=== PATIENT | female | born 1950 | race Caucasian/White ===

== ENCOUNTER 2018-09-08 14:51 | Outpatient (CLI) | payer MEDICARE, OTHER ==
--- NOTE | 2018-09-08 17:24 | DEXA Report ---
Reason: POST MENOPAUSAL Procedure Date: 09/08/2018 Accession Number: [id number] / [id number] Procedure: DEX - Dexa Spine and/or Hip CPT Code: FULL RESULT: EXAM: Dexa Spine and/or Hip DATE: 09/08/2018 3:48 PM CLINICAL HISTORY: POST MENOPAUSAL TECHNIQUE: Dual energy x-ray absorptiometry (DXA) was performed on a [employer] System. Regions measured are the AP Spine, femoral neck, and if needed forearm. COMPARISON: None. In accordance with the International Society for Clinical Densitometry (ISCD) guidelines, data from previous exams may be reanalyzed using current recommendations and techniques. This is done to allow a more accurate basis for comparison with the current study. FINDINGS: The data for the lumbar spine is as follows: BMD (g/cm/cm) T-SCORE Z-SCORE REGION L1 1.412 2.4 3.9 L2 1.423 1.9 3.5 L3 1.432 1.9 3.5 L4 1.446 2.1 3.7 TOTAL 1.430 2.1 3.7 NOTE: All evaluable vertebrae are used for classification The data for the hip is as follows: BMD (g/cm/cm) T-SCORE Z-SCORE REGION Neck 0.970 -0.5 1.2 TOTAL 0.950 -0.5 1.0 NOTE: The femoral neck or total proximal femur, whichever is lowest, is used for classification. IMPRESSION: THE WHO CLASSIFICATION BASED ON THE INTERNATIONAL REFERENCE STANDARD IS NORMAL. THE FRACTURE RISK IS NOT INCREASED. RECOMMENDATION: Patients with diagnosis of osteoporosis or osteopenia should have regular bone mineral density assessment. For those eligible for Medicare, routine testing is allowed once every 2 years. Testing frequency can be increased for patients who have rapidly progressing disease or for those who are receiving medical therapy to restore bone mass. COMMENT: World Health Organization (WHO) definitions for osteoporosis and osteopenia: NORMAL BMD: T-score at -1.0 or higher, fracture risk is low OSTEOPENIA BMD: T-score between -1.0 and -2.5, fracture risk is increased. OSTEOPOROSIS BMD: T-score at -2.5 or lower, fracture risk is high. National Osteoporosis Foundation recommends: 1. Obtain adequate dietary calcium (at least 1200 mg per day) and vitamin D (400-800 international units per day). 2. Participate, as appropriate, in regular weightbearing and muscle-strengthening exercise. 3. Avoid tobacco use and reduce alcohol and caffeine intake. 4. For more detailed information see the website at www.NOF.org.
== END 2018-09-08 14:52 | disposition home or self-care (01) ==
LOC: DI 14:51
PROVIDERS: ATTEND Physician Assistant
DX: Z13.820 Encounter for screening for osteoporosis (principal); Z78.0 Asymptomatic menopausal state
CPT/HCPCS: 77080

== ENCOUNTER 2021-10-03 11:05 | Outpatient (CLI) | payer MEDICARE, OTHER ==
--- NOTE | 2021-10-03 13:13 | XRAY Report ---
PROCEDURE: Hand 3 View RT INDICATIONS: PAIN AT BASE OF R THUMB TECHNIQUE: 3 views of the hand(s) acquired. COMPARISON: None. FINDINGS: Bones: No fractures or dislocations. No suspicious bony lesions. Moderate osteoarthritis involving the first carpal metacarpal joint and multiple interphalangeal joints. Soft tissues: No suspicious soft tissue calcifications. IMPRESSION: Moderate osteoarthritis. Reviewed by: Mohit Chou MD on 10/03/2021 1:12 PM PST Approved by: Mohit Chou MD on 10/03/2021 1:12 PM PST Station ID: [id number]
== END 2021-10-03 11:06 | disposition home or self-care (01) ==
LOC: DI 11:05
PROVIDERS: ATTEND Physician Assistant
DX: M79.644 Pain in right finger(s) (principal); M19.041 Primary osteoarthritis, right hand

== ENCOUNTER 2024-07-21 12:35 | Emergency (ER) | payer MEDICARE, OTHER ==
[2024-07-21 12:50] VITALS: O2SAT 100
--- NOTE | 2024-07-21 13:16 | XRAY Report ---
PROCEDURE: Chest 1V INDICATIONS: Chest pain TECHNIQUE: One view of the chest was acquired. COMPARISON: 03/19/2014. FINDINGS: Surgical changes and devices: Calcified left breast implant. Lungs and pleura: No pleural effusions or pneumothorax. Lungs are clear. Mediastinum: Mediastinal contours appear normal. Heart size is normal. Bones and chest wall: No suspicious bony lesions. Overlying soft tissues appear unremarkable. IMPRESSION: No acute cardiopulmonary process. Reviewed by: Sheldon Stewart MD on 07/21/2024 1:15 PM PDT Approved by: Sheldon Stewart MD on 07/21/2024 1:15 PM PDT Station ID: [id number]
[2024-07-21 13:37] LABS: BASOPHILS % (AUTO) 0.5 %; EOSINOPHILS % (AUTO) 0.2 %; HCT - HEMATOCRIT 40.6 % (37.0-47.0); HGB - HEMOGLOBIN 13.1 g/dL (12.0-16.0); LYMPHOCYTES # (AUTO) 1.7 10^3/uL (1.5-3.5); LYMPHOCYTES % (AUTO) 20.4 %; MEAN CORPUSCULAR HEMOGLOBIN 32.2 pg (27.0-31.0); MEAN CORPUSCULAR HGB CONC 32.3 g/dL (32.0-36.0); MEAN CORPUSCULAR VOLUME 99.8 fL (81.0-99.0); MEAN PLATELET VOLUME 9.9 fL (7.9-10.8); MONOCYTES # (AUTO) 0.5 10^3/uL (0.0-1.0); MONOCYTES % (AUTO) 5.8 %; NEUTROPHILS # (AUTO) 5.9 10^3/uL (1.5-6.6); NEUTROPHILS % (AUTO) 72.9 %; PLT - PLATELET COUNT 230 10^3/uL (130-450); RED BLOOD COUNT 4.07 10^6/uL (4.20-5.40); RED CELL DISTRIBUTION WIDTH 12.5 % (12.0-15.0); WHITE BLOOD COUNT 8.1 x10^3/uL (4.8-10.8)
[2024-07-21 13:58] LABS: ALBUMIN 4.6 g/dL (3.2-5.5); ALBUMIN/GLOBULIN RATIO 1.8 (1.0-2.2); BILIRUBIN,TOTAL 0.5 mg/dL (0.2-1.0); CALCIUM 10.4 mg/dL (8.5-10.3); CREATININE 0.9 mg/dL (0.6-1.3); POTASSIUM 4.1 mmol/L (3.5-4.5); TOTAL PROTEIN 7.1 g/dL (6.4-8.9)
[2024-07-21 14:02] LABS: TROPONIN I HIGH SENSITIVITY 6.3 ng/L (2.3-14.8)
--- NOTE | 2024-07-21 15:00 | ED Physician Documentation ---
PD HPI CHEST PAIN - Stated complaint Stated Complaint: CHEST PX - Chief complaint Chief Complaint: Cardiac - History obtained from History obtained from: Patient - Additional information Additional information: very healthy 74yo w no hx cardiac Yesterday while driving about 10am had severe sharp L cp lasting 3-4 sec. Then felt out of it for 5-10min. no sx today no soa, no pedal edema or calf pain no back radiation PD PAST MEDICAL HISTORY - Past Medical History Past Medical History: Yes Cardiovascular: High cholesterol - Past Surgical History Past Surgical History: Yes General: Cholecystectomy, Appendectomy /MANAGER PROGRESSIVE CARE: Hysterectomy, Breast implants - Present Medications Home Medications: Ambulatory Orders Medication Instructions Recorded Confirmed Estrogen,Con/M-Progest Acet 11/18/13 08/28/15 [Prempro 0.3 mg-1.5 mg Tablet] - Allergies Allergies/Adverse Reactions: Allergies Allergy/AdvReac Type Severity Reaction Status Date / Time No Known Drug Allergies Allergy Verified 07/21/24 12:40 - Social History Does the pt smoke?: No Smoking Status: Never smoker Does the pt drink ETOH?: No Does the pt have substance abuse?: No - Immunizations Immunizations are current?: Yes - POLST Patient has POLST: No PD ED PE NORMAL - Vitals Vital signs reviewed: Yes - General General: Alert and oriented X 3, No acute distress - Cardiac Cardiac: RRR, No murmur - Respiratory Respiratory: No respiratory distress, Clear bilaterally - Abdomen Abdomen: Non tender - Extremities Extremities: No edema, No calf tenderness / cord - Neuro Neuro: Alert and oriented X 3, Normal speech - Psych Psych: Normal mood, Normal affect Results - Vitals Vitals: Vital Signs - 24 hr 07/21/24 12:40 Temperature 36.5 C Heart Rate 72 Respiratory 16 Rate Blood Pressure 140/60 H O2 Saturation 100 - EKG (time done) 1244 EKG releavant findings:: EKG personally interpreted by author of this note. Relevant findings are: Rate: Rate (enter#) (71) Rhythm: NSR [place]: Normal Intervals: Normal MT QRS: Low voltage Ischemia: Normal ST segments Computer interpretation: Agree with computer - Labs Labs: Laboratory Tests 07/21/24 07/21/24 13:25 13:25 WBC 8.1 RBC 4.07 L Hgb 13.1 Hct 40.6 MCV 99.8 H MCH 32.2 H MCHC 32.3 RDW 12.5 Plt Count 230 MPV 9.9 Neut # (Auto) 5.9 Lymph # (Auto) 1.7 [place] # (Auto) 0.5 Eos # (Auto) 0.0 Baso # (Auto) 0.0 Absolute Nucleated RBC 0.00 Nucleated RBC % 0.0 Sodium 138 Potassium 4.1 Chloride 101 Carbon Dioxide 30 Anion Gap 7.0 BUN 16 Creatinine 0.9 Estimated GFR (MDRD) 61 L Glucose 101 Calcium 10.4 H Total Bilirubin 0.5 AST 26 ALT 16 Alkaline Phosphatase 35 L Troponin I High Sens 6.3 Total Protein 7.1 Albumin 4.6 Globulin 2.5 Albumin/Globulin Ratio 1.8 Lipase 32 - Rads (name of study) 1v cxr-nad Relevant Findings:: Final report received, EMP independent interpretation of test PD Medical Decision Making - ED course ED course: v 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 neg trop nl cbc/cmp/ekg/cxr outpt f/u advised Departure - Departure Disposition: 01 Home, Self Care Clinical Impression: Chest pain Qualifiers: Chest pain type: unspecified Qualified Code(s): R07.9 - Chest pain, unspecified Condition: Good Record reviewed to determine appropriate education?: Yes Instructions: ED Chest Pain Atypical Unkn Cause Comments: Thankfully, given the very short/resolved nature of the pain, it is unlikely to be anything serious. That said, return here if it recurs and followup with your primary doc, next available appt.
[2024-07-21 15:18] VITALS: BP 138/60
== END 2024-07-21 15:07 | disposition home or self-care (01) ==
LOC: ED 12:35
DX: R07.9 Chest pain, unspecified (principal)
CPT/HCPCS: 36415; 80053; 83690; 84484; 85025; 93005; 99283; 99284